=== PATIENT | male | born 1975 ===

== ENCOUNTER 2018-07-28 23:41 | Emergency (ER) | payer SELFPAY ==
[~2018-07-28] VITALS: Ht 180.3 cm; Wt 86.0 kg
[2018-07-28] MEDS ORDERED: AMOX-422 PO (23:51)
[2018-07-28] MEDS ORDERED: amox tr/potassium clavulanate 875/125mg TAB PO ONE (23:55)
[2018-07-28] MEDS ORDERED: TETanus/Pertussis (Acell)/Diphther VAC/PF (Tdap-Adult) 0.5ml syringe IMVAC ONE (23:55)
[2018-07-29 00:12] VITALS: BP 140/86
== END 2018-07-29 00:28 | disposition home or self-care (01) ==
LOC: ER 23:42
DX: S31.154A Open bite of abdominal wall, left lower quadrant without penetration into peritoneal cavity, initial encounter (principal); Z02.89 Encounter for other administrative examinations; W54.0XXA Bitten by dog, initial encounter; Y93.89 Activity, other specified; Y92.89 Other specified places as the place of occurrence of the external cause; Y99.8 Other external cause status
CPT/HCPCS: 99283